=== PATIENT | female | born 1980 ===

== ENCOUNTER 2016-09-07 23:57 | Emergency (ER) | payer OTHER ==
[2016-09-08 00:08] VITALS: PULSE 79; RESP 16; TEMP 97.6; O2SAT 100
--- NOTE | 2016-09-08 00:34 | ED PDOC ---
HPI: General Adult Time Seen by Provider: 09/08/16 00:31 Chief Complaint (Nursing): Weakness/Neurological Deficit Chief Complaint (Provider): FACIAL NUMBNESS History Per: Patient (36 Y/O FEMALE WITH LEFT FACIAL NUMBNESS AND HEADACHE NOTED TODAY. STATES SHE NOTED MODERATE PAIN ALONG LEFT SIDE OF FACE WELL. DENIES ANY UPPER/LOWER EXTREMITY WEAKNESS. NO RASH NOTED.) Past Medical History Reviewed: Historical Data, Nursing Documentation, Vital Signs Vital Signs: Last Vital Signs Temp 97.6 F 09/08/16 00:04 Pulse 79 09/08/16 00:04 Resp 16 09/08/16 00:04 BP 139/87 09/08/16 00:56 Pulse Ox 100 09/08/16 02:10 - Medical History PMH: Gall Bladder Disease, Hypercholesterolemia - Surgical History Surgical History: Cholecystectomy - Family History Family History: States: No Known Family Hx - Immunization History Hx Tetanus Toxoid Vaccination: No Hx Influenza Vaccination: No Hx Pneumococcal Vaccination: No - Home Medications Home Medications: Ambulatory Orders Medication Instructions Recorded Zolpidem Tartrate [Ambien] 10 mg PO HS 07/22/13 oxyCODONE/Acetaminophen [Percocet 1 tab PO QID PRN #20 tab 07/22/13 5/325 mg Tab] Ondansetron [Zofran Odt] 4 mg PO TID PRN #9 odt 04/25/14 oxyCODONE/Acetaminophen [Percocet 1 tab PO QID PRN #20 tab 04/25/14 5/325 mg Tab] - Allergies Allergies/Adverse Reactions: Allergies Allergy/AdvReac Type Severity Reaction Status Date / Time Penicillins Allergy ITCHING Verified 09/08/16 00:27 Review of Systems ROS Statement: Except As Marked, All Systems Reviewed And Found Negative Neurological: Positive for: Other (LEFT SIDE FACIAL NUMBNESS) Physical Exam - Reviewed Nursing Documentation Reviewed: Yes Vital Signs Reviewed: Yes - Physical Exam Appears: Positive for: Well, Non-toxic, No Acute Distress Head Exam: Positive for: ATRAUMATIC, NORMAL INSPECTION, NORMOCEPHALIC Skin: Positive for: Normal Color, Warm, DRY Eye Exam: Positive for: EOMI, Normal appearance, PERRL ENT: Positive for: Normal ENT Inspection Neck: Positive for: Normal, Painless ROM Cardiovascular/Chest: Positive for: Regular Rate, Rhythm Respiratory: Positive for: CNT, Normal Breath Sounds Gastrointestinal/Abdominal: Positive for: Normal Exam, Bowel Sounds, Soft Back: Positive for: Normal Inspection Extremity: Positive for: Normal ROM Neurologic/Psych: Positive for: Alert, Oriented, Other (MILD DROOP LEFT SIDED NOTED WITH SMILING. NUMBNESS ALONG LEFT SIDE OF FACE INVOLVING FOREHEAD. ) - Laboratory Results Result Diagrams: 09/08/16 00:32 09/08/16 00:36 Urine POC: Negative - ECG O2 Sat by Pulse Oximetry: 100 - Progress ED Course And Treament: head ct: neg d/w patient diagnosis of Garcia's Palsy Prednisone 60 mg x 1 dose in ED Patient notes persistent headache/pain behind left eye. Vomiting x 1 episode REglan 10 mg iv x 1 dose NS 1 liter in ED. Patient notes resolution of symptoms with headache. Re-examined. Patient states no numbness noted at this time. Disposition - Clinical Impression Clinical Impression: Migraine headache - Patient ED Disposition Is Patient to be Admitted: No - Disposition Referrals: [facility] [Outside] Disposition: Routine/Home Disposition Time: 01:12 Condition: FAIR Instructions: Migraine Headache (ED) Forms: [facility] ED School/Work Excuse Print Language: AMHARIC
[2016-09-08 00:43] LABS: BASO % 0.4 % (0.0-2.0); EOS # 0.1 K/uL (0.0-0.7); EOS % 1.5 % (0.0-4.0); HEMATOCRIT 40.6 % (34.0-47.0); LYMPH # 2.6 K/uL (1.0-4.3); LYMPH % 39.5 % (20.0-40.0); MEAN CELL VOLUME 95.8 fl (81.0-99.0); MEAN CORPUSCULAR HEMOGLOBIN 31.8 pg (27.0-31.0); MEAN CORPUSCULAR HGB CONC 33.2 g/dL (33.0-37.0); MEAN PLATELET VOLUME 7.8 fl (7.2-11.7); MONO # 0.5 K/uL (0.0-0.8); NEUT # 3.4 K/uL (1.8-7.0); NEUT % 50.6 % (50.0-75.0); NRBC % 0.1 % (0.0-0.0); RED CELL DISTRIBUTION WIDTH 13.3 % (11.5-14.5); WHITE BLOOD COUNT 6.7 K/uL (4.8-10.8)
--- NOTE | 2016-09-08 00:53 | CT ---
EXAM: CT Head Without Intravenous Contrast CLINICAL HISTORY: 36 years old, female; Signs and symptoms; Numbness / parasthesia; Left; Additional info: Facial numbness TECHNIQUE: Axial computed tomography images of the head/brain without intravenous contrast. This CT exam was performed using one or more of the following dose reduction techniques: automated exposure control, adjustment of the mA and/or kV according to patient size, and/or use of iterative reconstruction technique. Coronal and sagittal reformatted images were created and reviewed. COMPARISON: No relevant prior studies available. FINDINGS: Brain: No acute intracranial hemorrhage. No significant white matter disease. No edema. Ventricles: No significant ventriculomegaly. Bones: No acute displaced fracture. Sinuses: Unremarkable as visualized. No acute sinusitis. Mastoid air cells: Unremarkable as visualized. No mastoid effusion. IMPRESSION: No acute intracranial hemorrhage, or suspicious mass effect.
[2016-09-08 00:56] VITALS: BP 139/87
[2016-09-08 00:56] LABS: BLOOD UREA NITROGEN 14 mg/dl (7-17); CALCIUM 9.6 mg/dL (8.4-10.2); CARBON DIOXIDE 27 mmol/L (22-30); CHLORIDE 105 mmol/L (98-107); GFR AFRICAN-AMERICAN > 60; GLUCOSE,RANDOM 97 mg/dL (65-105); POTASSIUM 4.2 MMOL/L (3.6-5.0); SODIUM 145 mmol/l (132-148)
[2016-09-08] MEDS ORDERED: Sodium Chloride 0.9% 1,000 ML IV STA (01:36)
== END 2016-09-08 02:37 | disposition home or self-care (01) ==
LOC: H.ER 23:57
DX: G43.909 Migraine, unspecified, not intractable, without status migrainosus (principal); E78.00 Pure hypercholesterolemia, unspecified; R53.1 Weakness; R20.0 Anesthesia of skin; Z88.0 Allergy status to penicillin

== ENCOUNTER 2016-12-25 10:26 | Inpatient (IN) | payer OTHER ==
[2016-12-25 11:14] LABS: BASO % 0.5 % (0.0-2.0); EOS % 0.5 % (0.0-4.0); HEMATOCRIT 39.8 % (34.0-47.0); LYMPH # 1.7 K/uL (1.0-4.3); LYMPH % 32.1 % (20.0-40.0); MEAN CELL VOLUME 94.7 fl (81.0-99.0); MEAN CORPUSCULAR HEMOGLOBIN 32.3 pg (27.0-31.0); MEAN CORPUSCULAR HGB CONC 34.1 g/dL (33.0-37.0); MEAN PLATELET VOLUME 7.9 fl (7.2-11.7); MONO # 0.3 K/uL (0.0-0.8); MONO % 5.9 % (0.0-10.0); NEUT # 3.2 K/uL (1.8-7.0); RED CELL DISTRIBUTION WIDTH 12.9 % (11.5-14.5); WHITE BLOOD COUNT 5.3 K/uL (4.8-10.8)
[2016-12-25 11:32] LABS: ALB/GLOB RATIO 1.5 (1.0-2.1); ALCOHOL SERUM < 10 mg/dl (0-10); ALKALINE PHOSPHATASE 60 U/L (38-126); ALT/SGPT 38 U/L (9-52); AST/SGOT 23 U/L (14-36); BILIRUBIN,TOTAL 0.8 mg/dl (0.2-1.3); BLOOD UREA NITROGEN 9 mg/dl (7-17); CALCIUM 8.9 mg/dL (8.4-10.2); CARBON DIOXIDE 22 mmol/L (22-30); CHLORIDE 107 mmol/L (98-107); CHOLESTEROL 210 mg/dL (0-199); GFR AFRICAN-AMERICAN > 60; GLUCOSE,RANDOM 115 mg/dL (65-105); POTASSIUM 3.7 MMOL/L (3.6-5.0); SODIUM 140 mmol/l (132-148); TOTAL PROTEIN 7.4 G/DL (6.3-8.2)
[2016-12-25 11:40] LABS: PARTIAL THROMBOPLASTIN TIME 27.8 Seconds (25.6-37.1)
--- NOTE | 2016-12-25 11:58 | CT ---
PROCEDURE: CT HEAD WITHOUT CONTRAST. HISTORY: L facial numbness, LUE weakness COMPARISON: 09/08/2016 TECHNIQUE: Axial computed tomography images were obtained through the head/brain without intravenous contrast. Radiation dose: Total exam DLP = 905.59 mGy-cm. This CT exam was performed using one or more of the following dose reduction techniques: Automated exposure control, adjustment of the mA and/or kV according to patient size, and/or use of iterative reconstruction technique. FINDINGS: HEMORRHAGE: No intracranial hemorrhage. BRAIN: No mass effect or edema. No atrophy or chronic microvascular ischemic changes. VENTRICLES: Unremarkable. No hydrocephalus. CALVARIUM: Unremarkable. PARANASAL SINUSES: Unremarkable as visualized. No significant inflammatory changes. MASTOID AIR CELLS: Unremarkable as visualized. No inflammatory changes. OTHER FINDINGS: None. IMPRESSION: No intracranial mass, hemorrhage or evidence of acute infarct.
--- NOTE | 2016-12-25 12:13 | ED PDOC ---
HPI:STROKE - Historian Historian: EMS - Chief Complaint Chief Complaint: Numbness (left facial ), Arm weakness (left) - Notes: Notes:: Madison Aponte is a 36 year old female, with a previous medical history of hypercholesterolemia and migraines, who presents to the ED via EMS after falling in the lobby of the clinic prior to arrival. According to EMS there was no loss of consciousness. Patient reports a left sided headache associated left arm weakness and left facial numbness ongoing since 09:00 this morning. Patient reports going to sleep yesterday at 19:00 asymptomatic. She denies any chest pain, shortness of breath or tingling. PMD: none provided NIHSS Stroke Scale - How Severe is the Stroke Level of Consciousness: 1=Drowsy LOC to Questions: 0=Both comments correct LOC to commands: 0=Obeys both correctly Best Gaze: 0=Normal Visual: 0=No visual loss Facial: 0=Normal Motor Arm - Left: 4=No movement Motor Arm - Right: 0=No drift Motor Leg - Left: 0=No drift Motor Leg - Right: 0=No drift Limb Ataxia: 0=Absent Sensory: 0=Normal Best Language: 0=No aphasia Dysarthia: 0=Normal articulation Extinction & Inattention (Neglect): 0=Normal, no object Score: 5 rTPA Inclusion/Exclusion - Refusal of Treatment Patient Refused Treatment: No - Inclusion Criteria for Altepase Patient is 18 years or Older: Yes The Clinical Diagnosis of Ischemic Stroke That is Causing a Potentially Disabling Neurological Deficit: Yes Time of Onset is Well Established to be Less Than 270 Minute Before Treatment Would Begin: No Risk/Benefit Discussed With Patient/Family Member Present: No Past Medical History Reviewed: Historical Data, Nursing Documentation, Vital Signs Vital Signs: Last Vital Signs Temp 98.8 F 12/25/16 10:28 Pulse 110 H 12/25/16 10:28 Resp 18 12/25/16 10:28 BP 195/93 H 12/25/16 10:28 Pulse Ox 98 12/25/16 10:28 - Medical History PMH: Gall Bladder Disease, Hypercholesterolemia, Migraine - Surgical History Surgical History: Cholecystectomy - Family History Family History: States: Unknown Family Hx - Immunization History Hx Tetanus Toxoid Vaccination: No Hx Influenza Vaccination: No Hx Pneumococcal Vaccination: No - Home Medications Home Medications: Ambulatory Orders Medication Instructions Recorded No Known Home Med 12/25/16 - Allergies Allergies/Adverse Reactions: Allergies Allergy/AdvReac Type Severity Reaction Status Date / Time Penicillins Allergy ITCHING Verified 12/25/16 11:06 Review of Systems ROS Statement: Except As Marked, All Systems Reviewed And Found Negative Constitutional: Negative for: Fever, Chills Respiratory: Negative for: Shortness of Breath Gastrointestinal: Negative for: Nausea, Vomiting, Abdominal Pain, Diarrhea Musculoskeletal: Positive for: Arm Pain (left arm weakness). Negative for: Neck Pain Neurological: Positive for: Numbness (left facial ), Headache Physical Exam - Reviewed Nursing Documentation Reviewed: Yes Vital Signs Reviewed: Yes - Physical Exam Appears: Positive for: Well, Non-toxic, No Acute Distress (appears sleepy but arousable to verbal stimuli ) Head Exam: Positive for: ATRAUMATIC, NORMAL INSPECTION, NORMOCEPHALIC Skin: Positive for: Normal Color, Warm, DRY Eye Exam: Positive for: EOMI, Normal appearance, PERRL ENT: Positive for: Normal ENT Inspection, Other (tongue midline ) Neck: Positive for: Normal, Painless ROM Cardiovascular/Chest: Positive for: Regular Rate, Rhythm Respiratory: Positive for: CNT, Normal Breath Sounds Gastrointestinal/Abdominal: Positive for: Normal Exam, Bowel Sounds, Soft. Negative for: Tenderness Back: Positive for: Normal Inspection Extremity: Negative for: Normal ROM (cant move upper extremities. ), Calf Tenderness Neurologic/Psych: Positive for: Alert, Oriented. Negative for: Motor/Sensory Deficits, Facial Droop - Laboratory Results Result Diagrams: 12/25/16 10:15 12/25/16 10:15 - ECG O2 Sat by Pulse Oximetry: 98 (RA) Pulse Ox Interpretation: Normal - Physician Consult Information Time Consulting Physican Contacted: 12:38 Physician Contacted: Jesse Bonner Outcome Of Conversation: Recommends MRI brain w and w/o contrast. Medical Decision Making Medical Decision Making: Initial Impression: Complex migraine vs CVA Initial Plan: * type and screen * CT head w/o contrast * EKG * alcohol serum * urine drug screen * hemoglobin A1C * lipid panel * Troponin I * psychiatric consult * urine dipstick * PTT * PT * ECHO * MRI brain W & WO contrast * CXR * aspirin 325 mg PO * IV NS 1,000 ml at 1,000 ml/hr * zofran 4 mg IV * urinalysis * accu-check * Vital Signs Q15 min * reevaluation 11:56 CT head FINDINGS: HEMORRHAGE: No intracranial hemorrhage. BRAIN: No mass effect or edema. No atrophy or chronic microvascular ischemic changes. VENTRICLES: Unremarkable. No hydrocephalus. CALVARIUM: Unremarkable. PARANASAL SINUSES: Unremarkable as visualized. No significant inflammatory changes. MASTOID AIR CELLS: Unremarkable as visualized. No inflammatory changes. OTHER FINDINGS: None. IMPRESSION: No intracranial mass, hemorrhage or evidence of acute infarct. Scribe Attestation: Documented by Tamy Branch, acting as a scribe for Tamy Albarran MD. Provider Scribe Attestation: All medical record entries made by the Scribe were at my direction and personally dictated by me. I have reviewed the chart and agree that the record accurately reflects my personal performance of the history, physical exam, medical decision making, and the department course for this patient. I have also personally directed, reviewed, and agree with the discharge instructions and disposition. Disposition - Clinical Impression Clinical Impression: Headache, LUE weakness - Patient ED Disposition Is Patient to be Admitted: Yes - Disposition Disposition Time: 12:35 Condition: STABLE - Pt Status Changed To: Hospital Disposition Of: Inpatient - Admit Certification Admit to Inpatient:: After my assessment, the patient will require hospitalization for at least two midnights. This is because of the severity of symptoms shown, intensity of services needed, and/or the medical risk in this patient being treated as an outpatient. - POA Present On Arrival: None
--- NOTE | 2016-12-25 13:17 | RAD ---
HISTORY: L sided weakness COMPARISON: No prior. FINDINGS: LUNGS: No active pulmonary disease. PLEURA: No significant pleural effusion identified, no pneumothorax apparent. CARDIOVASCULAR: Normal. OSSEOUS STRUCTURES: No significant abnormalities. VISUALIZED UPPER ABDOMEN: Normal. OTHER FINDINGS: None. IMPRESSION: No active disease. No preliminary report provided by emergency department personnel.
[2016-12-25 13:47] LABS: RBC URINE 1 /hpf (0-3); URINE BILIRUBIN NEGATIVE (NEGATIVE); URINE BLOOD NEGATIVE (NEGATIVE); URINE COLOR YELLOW (YELLOW); URINE GLUCOSE (UA) NEG (Normal); URINE KETONE NEGATIVE (NEGATIVE); URINE LEUKOCYTE ESTERASE NEG Leu/uL (Negative); URINE PROTEIN NEGATIVE (NEGATIVE); URINE UROBILINOGEN 0.2-1.0 mg/dL (0.2-1.0); WBC URINE 1 /hpf (0-5)
--- NOTE | 2016-12-25 14:30 | CP.PCM.HP ---
History of Present Illness - History of Present Illness History of Present Illness: CC/HPI: 36 y.o. female with PMHx of Migraine present to the E.R. with complaints of headache. Headache started 5 days ago. It is localized to the left side of her face. It is associated with weakness in the left arm. Pt. states has been taking 3 excedrin every day but has not helped. The pain is severe and persistent. Pt. reports went to the Clinic at [facility] where open entering the front lobby she fell. Pt. denies mechancial fall but states the headache was severe and fel weak. The fall was witnessed by the security architect in the lobby. Pt. denies any head trauma, incontinence, or uncontrolled limb movements. Pt. states this is a new occurrence and states worst headache of her life. ROS: Pt. denies any visual disturbances, nausea, vomiting, diarrhea, abdominal pain, fever, chills, joint pain, incontinence. PMHx: Migraines, Depression, Vitamin B-12 Def., Hyperlipidemia, HPV + PSHx: Tubal Ligation FMHx: Healthy to date Social: TOB- None ETOH- None DRUGS- None Home: Lives with roommate OBTIFFANIE , LMP Tracey Work- Works in [employer], lives with roommate, All family members in [facility] Allergies: PCN Home Meds: Excedrin PMD: [facility] Dr. Ovidio Dietz Course: CBC- WNL CMP- Elevated Triglycerides and Total Cholesterol UA- WNL UDS- WNL COAG- WNL HbA1c- Pending previous 5.2% EKG- NSR CXR- WNL CT Head- WNL no acute findings MRI Brain with and without contrast-Pending ASA- 81mg Zofran- 4mg IVP Present on Admission - Present on Admission Any Indicators Present on Admission: No History of DVT/PE: No History of Uncontrolled Diabetes: No Urinary Catheter: No Decubitus Ulcer Present: No Review of Systems - Review of Systems Review of Systems: See HPI Past Patient History - Past Social History Smoking Status: Never Smoked - CARDIAC Hx Hypercholesterolemia: Yes - NEUROLOGICAL Hx Migraine: Yes - GASTROINTESTINAL Hx Gall Bladder Disease: Yes - PSYCHIATRIC Hx Substance Use: No - SURGICAL HISTORY Hx Cholecystectomy: Yes - ANESTHESIA Hx Anesthesia: Yes Hx Anesthesia Reactions: No Meds Allergies/Adverse Reactions: Allergies Allergy/AdvReac Type Severity Reaction Status Date / Time Penicillins Allergy ITCHING Verified 12/25/16 11:06 Physical Exam - Constitutional Appears: Non-toxic, No Acute Distress - Head Exam Head Exam: ATRAUMATIC, NORMOCEPHALIC - Eye Exam Eye Exam: EOMI, Normal appearance, PERRL - ENT Exam ENT Exam: Mucous Membranes Moist - Neck Exam Neck exam: Positive for: Full Rom. Negative for: Lymphadenopathy, Meningismus, Thyromegaly - Respiratory Exam Respiratory Exam: Clear to Auscultation Bilateral, NORMAL BREATHING PATTERN - Cardiovascular Exam Cardiovascular Exam: REGULAR RHYTHM, +S1, +S2 - GI/Abdominal Exam GI & Abdominal Exam: Soft. absent: Tenderness - Extremities Exam Extremities exam: Positive for: pedal pulses present. Negative for: calf tenderness - Back Exam Back exam: NORMAL INSPECTION. absent: CVA tenderness (L), CVA tenderness (R), vertebral tenderness - Neurological Exam Neurological exam: Alert, CN II-XII Intact Additional comments: Strength 5/5 Bilat. lower extremeties Strenghth 0/5 left upper extremity - Psychiatric Exam Psychiatric exam: Depressed, Flat Affect - Skin Skin Exam: Dry, Warm Results - Vital Signs Recent Vital Signs: Last Vital Signs Temp 98.8 F 12/25/16 10:28 Pulse 77 12/25/16 12:25 Resp 19 12/25/16 12:25 BP 121/77 12/25/16 12:25 Pulse Ox 98 12/25/16 12:43 - Labs Result Diagrams: 12/25/16 10:15 12/25/16 10:15 Labs: Laboratory Results - last 24 hr 12/25/16 13:39 Urine Color Yellow Urine Clarity Slighty-cloudy Urine pH 7.0 Ur Specific [place] 1.009 Urine Protein Negative Urine Glucose (UA) Neg Urine Ketones Negative Urine Blood Negative Urine Nitrate Negative Urine Bilirubin Negative Urine Urobilinogen 0.2-1.0 Ur Leukocyte Esterase Neg Urine RBC (Auto) 1 Urine Microscopic WBC 1 Ur Squamous Epith Cells 4 Assessment & Plan - Assessment and Plan (Free Text) Assessment: 36 y.o. female with PMHx of Migraines admitted for evaluation of limb weakness and syncope Syncope 1-Echocardiogram 2-PT/OT 3-MRI Brain pending Upper Limb Weakness 1-Neurology Consult- Dr. Bonner 2-PT/OT 3-MRI Brain pending Migraine 1-Ibuprofen PRN 2-Zofran PRN 2-MRI Brain pending Depression 1- Consult Psych- Dr. Gaston 2- Denies suicide ideation at this time Diet 1-Regular DVT Prophylaxis 1- SCD
[2016-12-25] MEDS ORDERED: Sodium Chloride 0.9% 1,000 ML IV SCH (15:15)
[2016-12-25] MEDS ORDERED: Gadodiamide 287 MG/ML VIAL (15ML) IV ONE (17:00)
--- NOTE | 2016-12-26 09:13 | MRI ---
PROCEDURE: MRI BRAIN WITH AND WITHOUT CONTRAST HISTORY: L sided BURKS, LUE weakness COMPARISON: CT head without contrast 12/25/2016 TECHNIQUE: Multiplanar, multisequence MR images of the brain were obtained with and without intravenous contrast enhancement. 12 cc of Omniscan injected intravenously FINDINGS: HEMORRHAGE: None DWI: No evidence of an acute or early subacute infarction. BRAIN PARENCHYMA: No mass,mass effect or edema. No atrophy or chronic microvascular ischemic changes. ENHANCEMENT: No abnormal intracranial enhancement. VENTRICLES: Unremarkable. No hydrocephalus. CRANIUM: Unremarkable. ORBITS: Grossly unremarkable. PARANASAL SINUSES/MASTOIDS: Clear VASCULAR SYSTEM: Skull base flow voids intact. OTHER FINDINGS: None . IMPRESSION: Unremarkable pre and post contrast enhanced MRI of the brain.
--- NOTE | 2016-12-26 10:34 | CP.PCM.CON ---
History of Present Illness - History of Present Illness History of Present Illness: Psychiatry Consult called to evaluate for depression CC: "I have been having migraines" HPI: 36 y.o. female with PMHx of Migraine presented to the E.R. with complaints of headache w/ associated weakness in the left arm. Patient denies all psychiatric complaints to specification writer. No depression/anxiety/hallucinations/paranoia /delusions/charles/obsessions/compulsives/panic attacks/SI/HI. PPHx: Denies past psychiatric history. PMHx: Migraines Vitamin B-12 Def., Hyperlipidemia, HPV + PSHx: Tubal Ligation FMHx: Healthy to date Social: TOB- None ETOH- None DRUGS- None Home: Lives with roommate OBTIFFANIE , LMP November 28 Work- Works in [employer], lives with roommate, All family members in [facility] Allergies: PCN Home Meds: Excedrin PMD: [facility] Dr. Nolan MSE: A + O x 3, calm, cooperative, speech normal (northern irish speaking), mood "okay ", thought process-linear/coherent, no delusions/paranoia, no SI/HI, no hallucinations, insight/judgment good. Impression: 36 yo female w/ no acute psychiatric issues. No need for psychiatric medications or inpatient psychiatric hospitalization. Past Patient History - Past Medical History & Family History Past Medical History?: Yes - Past Social History Smoking Status: Never Smoked - CARDIAC Hx Cardiac Disorders: Yes Hx Hypercholesterolemia: Yes - PULMONARY Hx Respiratory Disorders: No - NEUROLOGICAL Hx Neurological Disorder: Yes Hx Migraine: Yes - HEENT Hx HEENT Problems: No - RENAL Hx Chronic Kidney Disease: No - ENDOCRINE/METABOLIC Hx Endocrine Disorders: No - HEMATOLOGICAL/ONCOLOGICAL Hx Blood Disorders: No - INTEGUMENTARY Hx Dermatological Problems: No - MUSCULOSKELETAL/RHEUMATOLOGICAL Hx Musculoskeletal Disorders: Yes Hx Falls: Yes - GASTROINTESTINAL Hx Gastrointestinal Disorders: Yes Hx Gall Bladder Disease: Yes - GENITOURINARY/GYNECOLOGICAL Hx Genitourinary Disorders: No - PSYCHIATRIC Hx Psychophysiologic Disorder: Yes Hx Depression: Yes Hx Substance Use: No - SURGICAL HISTORY Hx Surgeries: Yes Hx Cholecystectomy: Yes Hx Tubal Ligation: Yes - ANESTHESIA Hx Anesthesia: Yes Hx Anesthesia Reactions: No Meds Allergies/Adverse Reactions: Allergies Allergy/AdvReac Type Severity Reaction Status Date / Time Penicillins Allergy ITCHING Verified 12/25/16 11:06 - Medications Medications: Current Medications Atorvastatin Calcium (Lipitor) 40 mg PO DAILY MIGUEL Ibuprofen (Motrin Tab) 600 mg PO Q6 PRN PRN Reason: Pain, moderate (4-7) Tramadol HCl (Ultram) 50 mg PO Q4 PRN PRN Reason: Headache Tramadol HCl (Ultram) 50 mg PO Q6 PRN PRN Reason: Pain, severe (8-10) Results - Vital Signs Recent Vital Signs: Last Vital Signs Temp 98.3 F 12/26/16 08:00 Pulse 75 12/26/16 08:00 Resp 18 12/26/16 08:00 BP 126/81 12/26/16 08:00 Pulse Ox 100 12/26/16 08:00 - Labs Result Diagrams: 12/25/16 10:15 12/25/16 10:15 Labs: Laboratory Results - last 24 hr 12/25/16 12/25/16 12/25/16 13:39 13:39 20:00 ESR 12 Urine Color Yellow Urine Clarity Slighty-cloudy Urine pH 7.0 Ur Specific [place] 1.009 Urine Protein Negative Urine Glucose (UA) Neg Urine Ketones Negative Urine Blood Negative Urine Nitrate Negative Urine Bilirubin Negative Urine Urobilinogen 0.2-1.0 Ur Leukocyte Esterase Neg Urine RBC (Auto) 1 Urine Microscopic WBC 1 Ur Squamous Epith Cells 4 Urine Opiates Screen Negative Urine Methadone Screen Negative Ur Barbiturates Screen Negative Ur Phencyclidine Scrn Negative Ur Amphetamines Screen Negative U Benzodiazepines Scrn Negative U Oth Cocaine Metabols Negative U Cannabinoids Screen Negative
--- NOTE | 2016-12-26 11:19 | MRI ---
PROCEDURE: Magnetic Resonance Angiography Brain HISTORY: Vasculitis COMPARISON: None available. TECHNIQUE: 3D time of flight MR angiography of the intracranial arteries was performed. Rotating maximum intensity projection images were generated. FINDINGS: INTERNAL CEREBRAL ARTERIES: Normal in caliber. The skull base, petrous, cavernous and supraclinoid segments are bilaterally widely patient. ANTERIOR CEREBRAL ARTERIES: Normal in caliber e. A1 and A2 segments are widely patent. Smaller distal branches unremarkable, as visualized. MIDDLE CEREBRAL ARTERIES: Normal in caliber. M1 and M2 segments are widely patent. Perisylvian branches grossly symmetric. POSTERIOR CIRCULATION: Basilar Artery: There is a small eccentric filling defect along the left wall in the mid basilar artery. Distal Vertebral Arteries: Normal in caliber. The left vertebral artery is dominant, an anatomic variant. Posterior Cerebral Arteries: Normal in caliber. Posterior Inferior Cerebellar Arteries: Normal in caliber. ANEURYSM/ VASCULAR MALFORMATIONS: None. OTHER FINDINGS: None. IMPRESSION: 1. Suspect small thrombus versus atherosclerotic plaque in the mid basilar artery along the left lateral wall. A CT angiogram of the head may be performed for further characterization. 2. Normal and widely patent anterior circulation, posterior cerebral and vertebral arteries.
--- NOTE | 2016-12-26 11:23 | MRI ---
PROCEDURE: MR Angiography of the neck without contrast HISTORY: STENOSIS VASCULOPATHY COMPARISON: None available. TECHNIQUE: 3D [id number] angiography of the neck was performed. Rotating maximum intensity projection images of the cervical carotid and vertebral arteries were generated. The origins of the common carotid arteries were not visualized, which is a limitation inherent to the non-contrast time of flight technique. FINDINGS: RIGHT CAROTID ARTERIES: Common Carotid Artery: Normal. Carotid Bifurcation: Normal. Internal Carotid Artery:Normal. External Carotid Artery (proximal branches): Normal. LEFT CAROTID ARTERIES: Common Carotid Artery: Normal. Carotid Bifurcation: Normal. Internal Carotid Artery:Normal. External Carotid Artery (proximal branches): Normal. VERTEBRAL ARTERIES: Right Vertebral Artery: Normal. Left Vertebral Artery: Normal. The left vertebral artery is dominant, an anatomic variant. OTHER FINDINGS: None. IMPRESSION: Normal MR Angiography of the neck.
--- NOTE | 2016-12-26 11:26 | CARD ---
APPROVED REPORT EXAM: Two-dimensional and M-mode echocardiogram with Doppler and color Doppler. Other Information Quality : GoodRhythm : NSR INDICATION Syncope Echo Enhancing Agent Indication: Rule Out Septal Defect Agent/Amount Used: Agitated Saline 2D DIMENSIONS IVSd0.98 (0.7-1.1cm)LVDd4.14 (3.9-5.9cm) LVOT Diameter1.93 (1.8-2.4cm)PWd0.91 (0.7-1.1cm) IVSs1.53 (0.8-1.2cm)LVDs2.84 (2.5-4.0cm) FS (%) 31.4 %PWs1.21 (0.8-1.2cm) M-Mode DIMENSIONS Left Atrium (MM)3.53 (2.5-4.0cm)IVSd0.97 (0.7-1.1cm) Aortic Root2.53 (2.2-3.7cm)LVDd4.65 (4.0-5.6cm) Aortic Cusp Exc.1.76 (1.5-2.0cm)PWd0.79 (0.7-1.1cm) IVSs1.12 cmFS (%) 27 % LVDs3.41 (2.0-3.8cm)PWs1.15 cm Mitral Valve MV E Jfhiovld80.2cm/sMV DECEL [id number] A Haeludfc64.8cm/s MV ABF67efH/A ratio1.4MVA (PHT)6.42cm2 TDI Lateral E' Peak V15.56cm/sMedial E' Peak V9.37cm/sE/Lateral E'4.3 E/Medial E'7.1 Pulmonary Valve PV Peak Chcklunn12.8cm/s LEFT VENTRICLE The left ventricle is normal size. There is normal left ventricular wall thickness. The left ventricular function is normal. The left ventricular ejection fraction is 60% There is normal LV segmental wall motion. The left ventricular diastolic function is normal. No left ventricle thrombus noted on this study. There is no ventricular septal defect visualized. There is no left ventricular aneurysm. There is no mass noted in the left ventricle. RIGHT VENTRICLE The right ventricle is normal size. There is normal right ventricular wall thickness. The right ventricular systolic function is normal. ATRIA The left atrium size is normal. The right atrium size is normal. The interatrial septum is intact with no evidence for an atrial septal defect. AORTIC VALVE The aortic valve is normal in structure and function. No aortic regurgitation is present. There is no aortic valvular stenosis. There is no aortic valvular vegetation. MITRAL VALVE The mitral valve is normal in structure and function. There is no evidence of mitral valve prolapse. There is no mitral valve stenosis. There is no mitral valve regurgitation noted. TRICUSPID VALVE The tricuspid valve is normal in structure and function. There is no tricuspid valve regurgitation noted. There is no tricuspid valve prolapse or vegetation. There is no tricuspid valve stenosis. PULMONIC VALVE The pulmonary valve is normal in structure and function. There is no pulmonic valvular regurgitation. There is no pulmonic valvular stenosis. GREAT VESSELS The aortic root is normal in size. The ascending aorta is normal in size. The IVC is normal in size and collapses >50% with inspiration. PERICARDIAL EFFUSION The pericardium appears normal. There is no pleural effusion. <Conclusion> Normal Echocardiogram
--- NOTE | 2016-12-26 12:18 | CP.PCM.PN ---
Subjective - Date & Time of Evaluation Date of Evaluation: 12/26/16 Time of Evaluation: 12:17 - Subjective Subjective: Pt was seen and examined at the bedside. Denies headache, weakness of extremities, or facial numbness. Denies chest pain, SOB, dizziness, N/V, numbness or tingling, or loss of bladder or bowels. Objective - Vital Signs/Intake and Output Vital Signs (last 24 hours): Temp Pulse Resp BP Pulse Ox 98.3 F 75 18 126/81 100 12/26/16 08:00 12/26/16 08:00 12/26/16 08:00 12/26/16 08:00 12/26/16 08:00 - Medications Medications: Current Medications Atorvastatin Calcium (Lipitor) 40 mg PO DAILY MIGUEL Enoxaparin Sodium (Lovenox) 40 mg SC DAILY MIGUEL PRN Reason: Protocol Ibuprofen (Motrin Tab) 600 mg PO Q6 PRN PRN Reason: Pain, moderate (4-7) Tramadol HCl (Ultram) 50 mg PO Q4 PRN PRN Reason: Headache Tramadol HCl (Ultram) 50 mg PO Q6 PRN PRN Reason: Pain, severe (8-10) - Labs Labs: PT 11.6 Seconds (9.8-13.1) 12/25/16 10:15 INR 1.0 (0.9-1.2) 12/25/16 10:15 APTT 27.8 Seconds (25.6-37.1) 12/25/16 10:15 Assessment and Plan - Assessment and Plan (Free Text) Assessment: Assessment: 36 y.o. female with PMHx of Migraines admitted for evaluation of headache, left upper extremity weakness and syncope. 1)Syncope & LE Weakness -CBC nml, Utox negative, UA nml -ECG NSR, Echo nonremarkable -Head CT- nml -MRI of brain-nml -MRA of Head: Suspect thrombus vs atherosclerotic plaque of Mid Basilar Artery -Carotid Artery US- no hemodynamically significant stenosis -Neurology consulted, Will speak to neurologist and likely order CT Angio (Dr. Bonner) -CT Angio ordered -PT/OT placed 2)Migraine -Pt no longer complaining of headache -Ibuprofen PRN 2-Zofran PRN 2-MRI Brain pending HLD Lipid Panel TAG 373, Chol 210 Statin 40mg Depression 1- Consult Psych- Dr. Gaston 2- Denies suicide ideation at this time Diet 1-Regular DVT Prophylaxis 1- SCD (lovenox not given because patient is low risk- age, not , not on control, non smoker)
--- NOTE | 2016-12-26 13:55 | US ---
Carotid ultrasound Indication: Stenosis Technique: Grayscale, color, and duplex Doppler imaging of the bilateral carotid and vertebral arteries. Findings: Peak systolic velocities are as follows (cm/sec) Right: CCA - proximal 72.4 CCA - mid 77.9 CCA- distal 69.1 ECA 66.9 ICA - proximal 67.7 ICA - mid 90.3 ICA - distal 90.3 Vertebral- antegrade 38.3 ICA/CCA- 1.3 Left: CCA - proximal 111.3 CCA - mid 101.6 CCA- distal 87.1 ECA 80.6 ICA - proximal 70.9 ICA - mid 72.5 ICA - distal 88.7 Vertebral- antegrade 43.4 ICA/CCA- 1.0 Impression: No evidence of hemodynamically significant stenosis. Measurement of carotid stenosis is based on velocity parameters that correlate measurement of carotid stenosis is based on velocity parameters that correlate the residual internal carotid diameter with that of the more distal vessel in accordance with the [place] symptomatic carotid endarterectomy Trial (NASCET).
--- NOTE | 2016-12-26 18:03 | CARD ---
APPROVED REPORT EKG Measurement Heart [id number] <Conclusion> Normal sinus rhythm Normal ECG
[2016-12-26] MEDS ORDERED: Iodixanol 320 MG/ML 100 ML BOTTLE IV ONE (19:17)
[2016-12-26] MEDS ORDERED: Sodium Chloride 0.9% 100 ML ONE (19:17)
--- NOTE | 2016-12-26 20:55 | CT ---
EXAM: CT Angiography Head With Intravenous Contrast CLINICAL HISTORY: 36 years old, female; Signs and symptoms; Headache and weakness; Additional info: Mra finding supcious of basilar thrombus. TECHNIQUE: Axial computed tomographic angiography images of the head with intravenous contrast using CT angiography protocol. This CT exam was performed using one or more of the following dose reduction techniques: automated exposure control, adjustment of the mA and/or kV according to patient size, and/or use of iterative reconstruction technique. MIP reconstructed images were created and reviewed. Coronal and sagittal reformatted images were created and reviewed. CONTRAST: 75 mL of [id number] administered intravenously. EXAM DATE/TIME: 12/26/2016 7:19 PM COMPARISON: Recent MR angiogram of the brain, 12/26/2016 9:09 AM FINDINGS: RIGHT INTERNAL CAROTID ARTERY: No evidence of occlusion. No aneurysm visualized. RIGHT ANTERIOR CEREBRAL ARTERY: No evidence of occlusion. No aneurysm visualized. RIGHT MIDDLE CEREBRAL ARTERY: No evidence of occlusion. No aneurysm visualized. RIGHT POSTERIOR CEREBRAL ARTERY: No evidence of occlusion. No aneurysm visualized. RIGHT VERTEBRAL ARTERY: No evidence of occlusion or significant stenosis. No evidence of dissection. LEFT INTERNAL CAROTID ARTERY: No evidence of occlusion. No aneurysm visualized. LEFT ANTERIOR CEREBRAL ARTERY: No evidence of occlusion. No aneurysm visualized. LEFT MIDDLE CEREBRAL ARTERY: No evidence of occlusion. No aneurysm visualized. LEFT POSTERIOR CEREBRAL ARTERY: No evidence of occlusion. No aneurysm visualized. LEFT VERTEBRAL ARTERY: No evidence of occlusion or significant stenosis. No evidence of dissection. BASILAR ARTERY: No evidence of occlusion. Specifically, there is no evidence of thrombus in the basilar artery. No aneurysm visualized. IMPRESSION: - No evidence of occlusion or other acute abnormality of the major intracranial arteries. There is no evidence of basilar artery thrombosis. - See above for remaining findings.
--- NOTE | 2016-12-27 01:01 | CON ---
DATE: 12/26/2016 REASON FOR THE EVALUATION: Left-sided numbness. CHIEF COMPLAINT: The patient was brought in to [facility] with a history of numbness on her face and left arm. From neurological point of view, we called to evaluate her for further management. HISTORY OF PRESENT ILLNESS: Ms. Madison Aponte is a 36-year-old right-handed female in usual state of health, developed five days history of vomiting. Yesterday around 9 o'clock at her work, started to develop numbness of the left-side of the face and left arm, which was persistent in nature. Since the similar problem happened in the past, she decided to come to the hospital for further evaluation. The whole symptoms resolved after 7-hour period. The symptom is not associating with any visual or bulbar dysfunction. No involuntary movements. No focal weakness. She has similar symptoms and being admitted in the same hospital, been worked up and sent home with a diagnosis of migraine. PAST MEDICAL HISTORY: Unremarkable. PERSONAL HISTORY: Denies smoking or alcohol use. She is a mother of two children. No history of miscarriage. REVIEW OF SYSTEMS: A 12-point system has been reviewed. From a neurological system, she does have facial numbness and arm numbness. MEDICATIONS: Aspirin, atorvastatin, Lovenox and Tramadol. PHYSICAL EXAMINATION: VITAL SIGNS: Blood pressure 109/70, mean artery pressure of 83, respiratory rate 16, temperature afebrile. NECK: Supple. No carotid bruit. HEART: Sounds are regular. CHEST: Fair air entry. EXTREMITIES: No edema in legs. NEUROLOGICAL EXAMINATION: Mental status examination, she is awake, alert, and oriented to person, place, and time. Speech is clear. Naming, repetition, fluency, comprehension all within normal. CRANIAL NERVE EXAMINATION: Visual field intact. Pupil reactive to light. Extraocular movement normal. No nystagmus. No facial or sensory deficit. No facial asymmetry. Hearing is normal. Tongue is midline. Good gag. MOTOR EXAMINATION: Outstretched hand with eyes closed, no drift is noted. Probably symmetric on either side. DEEP TENDON REFLEXES: Biceps, brachioradialis, and triceps are 2+. Both knees are 3+. Both ankles are 2+. Left plantars are upgoing compared to the right side, which is downgoing. SENSORY EXAMINATION: Grossly intact. No cortical sensory loss. COORDINATION: [id number] test is intact. Gait is normal. CONCLUSION: Upon reviewing her history and neurological examination, Ms. Madison Aponte has been presenting with right subcortical dysfunction, manifesting with the episode of left facial and arm numbness. The current examination showed a left Babinski sign. Considering her age, this is probably brainstem migraine, however, other possible causes including hypercoagulable stage should be ruled out. LABORATORY DATA: Workup and CT of the head reviewed, no acute pathology. MRI of the brain, no acute ischemic process. MRA of the neck revealed no significant stenosis. MRA of the cachil dehe of [place] shows signal suggestive of possible thrombus in the basilar artery. EEG, no paroxysmal activities. Blood workup, WBC is 5.3, hemoglobin 13.6, hematocrit 39.8, platelet 310. PT 11.6, INR 1.0, PTT 27.8. Sodium 140, potassium 3.7, chloride 107, bicarbonate 22, BUN 9, creatinine 0.6, and glucose 118. Liver functions are normal. CRP 0.52. Triglyceride 373, cholesterol 210. Urine tox screen negative. RECOMMENDATIONS: 1. The patient should be on aspirin for stroke prophylaxis. 2. Considering dyslipidemia, the patient should be on statin. 3. Co-Enzyme Q10 can be given to improve her energy because of migraine and being on statin. Probably, she needs Coenzyme Q for some limitation. 4. Hypercoagulable stage, which has been worked up, however, the results are pending. 5. The patient is also scheduled to have CT angiogram to confirm thrombus in the basilar artery or not. If CT of the angiogram is negative, the patient is cleared from neuro, she can be discharged and should have followup visit as outpatient. Jesse Bonner MD CALI
[2016-12-27 06:37] LABS: HOMOCYSTEINE 7.5 umol/L (<10.4)
[2016-12-27 08:12] VITALS: BP 103/67; PULSE 71; RESP 18; TEMP 98.2; O2SAT 99
[2016-12-27] MEDS ORDERED: Enoxaparin 40 mg Syringe SC SCH (09:00)
--- NOTE | 2016-12-27 13:19 | EEG ---
DATE: 12/25/2016 The resting electroencephalogram consists of 30-40 microvolt, 9-11 hertz alpha activities seen at parietal and occipital leads. Anteriorly superimposed with 2-3 hertz of delta activity seen. The background alpha rhythm is symmetrically attenuated with eye opening. Some muscle as well as movement artifact contaminated the background rhythm. The photic stimulation did not develop any response noted at 2-20 hertz. Intermittent high amplitude delta activity seen which is consistent with early drowsiness. The photic stimulation did not develop any response noted at 2-20 hertz. IMPRESSION: This is a normal electroencephalogram of awake and drowsy adult. During the study, neither the electroencephalographic paroxysmal activities nor focal slowing noted. Jesse Bonner MD MTDD
--- NOTE | 2016-12-27 16:07 | CP.PCM.DIS ---
Provider - Provider Date of Admission: 12/25/16 12:35 Attending physician: Rosa Hester MD Time Spent in preparation of Discharge (in minutes): 30 Diagnosis - Discharge Diagnosis (1) Migraine headache Status: Resolved Hospital Course - Lab Results Lab Results: Most Recent Lab Values WBC 5.3 K/uL (4.8-10.8) 12/25/16 10:15 RBC 4.20 Mil/uL (3.80-5.20) 12/25/16 10:15 Hgb 13.6 g/dL (12.0-16.0) 12/25/16 10:15 Hct 39.8 % (34.0-47.0) 12/25/16 10:15 MCV 94.7 fl (81.0-99.0) 12/25/16 10:15 MCH 32.3 pg (27.0-31.0) H 12/25/16 10:15 MCHC 34.1 g/dL (33.0-37.0) 12/25/16 10:15 RDW 12.9 % (11.5-14.5) 12/25/16 10:15 Plt Count 310 K/uL (130-400) 12/25/16 10:15 MPV 7.9 fl (7.2-11.7) 12/25/16 10:15 Neut % (Auto) 61.0 % (50.0-75.0) 12/25/16 10:15 Lymph % (Auto) 32.1 % (20.0-40.0) 12/25/16 10:15 Knott % (Auto) 5.9 % (0.0-10.0) 12/25/16 10:15 Eos % (Auto) 0.5 % (0.0-4.0) 12/25/16 10:15 Baso % (Auto) 0.5 % (0.0-2.0) 12/25/16 10:15 Neut # 3.2 K/uL (1.8-7.0) 12/25/16 10:15 Lymph # 1.7 K/uL (1.0-4.3) 12/25/16 10:15 Knott # 0.3 K/uL (0.0-0.8) 12/25/16 10:15 Eos # 0.0 K/uL (0.0-0.7) 12/25/16 10:15 Baso # 0.0 K/uL (0.0-0.2) 12/25/16 10:15 ESR 12 mm/hr (0-20) 12/25/16 20:00 PT 11.6 Seconds (9.8-13.1) 12/25/16 10:15 INR 1.0 (0.9-1.2) 12/25/16 10:15 APTT 27.8 Seconds (25.6-37.1) 12/25/16 10:15 Sodium 140 mmol/l (132-148) 12/25/16 10:15 Potassium 3.7 MMOL/L (3.6-5.0) 12/25/16 10:15 Chloride 107 mmol/L (98-107) 12/25/16 10:15 Carbon Dioxide 22 mmol/L (22-30) 12/25/16 10:15 Anion Gap 15 (10-20) 12/25/16 10:15 BUN 9 mg/dl (7-17) 12/25/16 10:15 Creatinine 0.6 mg/dL (0.7-1.2) L 12/25/16 10:15 Est GFR ( Amer) > 60 12/25/16 10:15 Est GFR (Non-Af Amer) > 60 12/25/16 10:15 POC Glucose (mg/dL) 118 mg/dL (65-110) H 12/25/16 10:39 Random Glucose 115 mg/dL (65-105) H 12/25/16 10:15 Hemoglobin A1c 5.4 % (4.2-6.5) 12/25/16 10:15 Calcium 8.9 mg/dL (8.4-10.2) 12/25/16 10:15 Total Bilirubin 0.8 mg/dl (0.2-1.3) 12/25/16 10:15 AST 23 U/L (14-36) 12/25/16 10:15 ALT 38 U/L (9-52) 12/25/16 10:15 Alkaline Phosphatase 60 U/L (38-126) 12/25/16 10:15 Troponin I < 0.0120 ng/mL (0.00-0.120) 12/25/16 10:15 C-React Prot High Sens 0.52 mg/L (1.00-3.00) L 12/25/16 20:00 Total Protein 7.4 G/DL (6.3-8.2) 12/25/16 10:15 Albumin 4.4 g/dL (3.5-5.0) 12/25/16 10:15 Globulin 3.0 gm/dL (2.2-3.9) 12/25/16 10:15 Albumin/Globulin Ratio 1.5 (1.0-2.1) 12/25/16 10:15 Triglycerides 373 mg/DL (0-149) H D 12/25/16 10:15 Cholesterol 210 mg/dL (0-199) H 12/25/16 10:15 LDL Cholesterol Direct 111 mg/dL (0-129) 12/25/16 10:15 HDL Cholesterol 33 MG/DL (30-70) 12/25/16 10:15 Homocysteine 7.5 umol/L ( <10.4) 12/25/16 20:00 Urine Color Yellow (YELLOW) 12/25/16 13:39 Urine Clarity Slighty-cloudy (Clear) 12/25/16 13:39 Urine pH 7.0 (5.0-8.0) 12/25/16 13:39 Ur Specific [place] 1.009 (1.003-1.030) 12/25/16 13:39 Urine Protein Negative mg/dL (NEGATIVE) 12/25/16 13:39 Urine Glucose (UA) Neg mg/dL (Normal) 12/25/16 13:39 Urine Ketones Negative mg/dL (NEGATIVE) 12/25/16 13:39 Urine Blood Negative (NEGATIVE) 12/25/16 13:39 Urine Nitrate Negative (NEGATIVE) 12/25/16 13:39 Urine Bilirubin Negative (NEGATIVE) 12/25/16 13:39 Urine Urobilinogen 0.2-1.0 mg/dL (0.2-1.0) 12/25/16 13:39 Ur Leukocyte Esterase Neg Alberto/uL (Negative) 12/25/16 13:39 Urine RBC (Auto) 1 /hpf (0-3) 12/25/16 13:39 Urine Microscopic WBC 1 /hpf (0-5) 12/25/16 13:39 Ur Squamous Epith Cells 4 /hpf (0-5) 12/25/16 13:39 Urine Opiates Screen Negative (NEGATIVE) 12/25/16 13:39 Urine Methadone Screen Negative (NEGATIVE) 12/25/16 13:39 Ur Barbiturates Screen Negative (NEGATIVE) 12/25/16 13:39 Ur Phencyclidine Scrn Negative (NEGATIVE) 12/25/16 13:39 Ur Amphetamines Screen Negative (NEGATIVE) 12/25/16 13:39 U Benzodiazepines Scrn Negative (NEGATIVE) 12/25/16 13:39 U Oth Cocaine Metabols Negative (NEGATIVE) 12/25/16 13:39 U Cannabinoids Screen Negative (NEGATIVE) 12/25/16 13:39 Alcohol, Quantitative < 10 mg/dl (0-10) 12/25/16 10:15 Blood Type A POSITIVE 12/25/16 10:15 Antibody Screen Negative 12/25/16 10:15 BBK History Checked No verified bt 12/25/16 10:15 - Hospital Course Hospital Course: Discharge Diagnoses: Complex Migraine associated with LE Extremity weakness Consultations: Neurology, Psychiatry Procedures: none Complications: none Pt is a 36 yo female with a PMHx of HTN who presented to the clinic for a headache that she described as the worst headache of her life and left upper extremity weakness associated with naseasu and vomiting. While walking into clinic she passed out and was brought to the ED where she was worked up for a stroke. EKG, Head CT, Brain MRI, EEG and CT Angio showed no evidence of occlusion. Her headache and left upper extremity weakness resolved right away. Pt was also found to have elevated cholesterol levels but her ACVD risk was low so we did not put her Statins. Discharge Medications: Discharge Plan: Condition Upon Discharge: Stable Activity:Ambulating without assistance Diet:Regular Issues to be addressed at f/u: Elevated cholesterol levels, Evaluate for Depression/Anxiety, Management of Migraines, Pt was told to sharifa a headache journal and bring to next follow up appt. Discharge Exam - Head Exam Head Exam: ATRAUMATIC, NORMAL INSPECTION, NORMOCEPHALIC - Eye Exam Eye Exam: EOMI, PERRL Pupil Exam: NORMAL ACCOMODATION - ENT Exam ENT Exam: Mucous Membranes Moist - Respiratory Exam Respiratory Exam: absent: Accessory Muscle Use, Prolonged Expiratory Phase, Rales, Wheezes, Respiratory Distress - Cardiovascular Exam Cardiovascular Exam: REGULAR RHYTHM, +S1, +S2. absent: Systolic Murmur - Extremities Exam Extremities exam: normal capillary refill, pedal edema - Neurological Exam Neurological exam: Alert, Oriented x3 Additional comments: No motor or sensory defecits - Psychiatric Exam Psychiatric exam: Normal Affect Discharge Plan - Follow Up Plan Condition: STABLE Disposition: HOME/ ROUTINE Instructions: Constipation (DC), Constipation (GEN), Acute Abdominal Pain (DC) , Acute Abdominal Pain (GEN) Additional Instructions: Activity as tolerated. Regular diet. Appointment at [facility] Dec @ [address] Roman Titus Referrals: Jesse Bonner MD [Medical Doctor] - Hans Titus DO [Resident] -
[2016-12-28 22:53] LABS: CARDIOLIPIN AB (IGA) <11 APL (<=11)
[2016-12-29 05:16] LABS: B2 GLYCOPROTEIN I AB(IGA) <9 SAU (<=20); B2 GLYCOPROTEIN I AB(IGG) <9 SGU (<=20); B2 GLYCOPROTEIN I AB(IGM) <9 SMU (<=20)
[2016-12-29 06:03] LABS: PHOSPHATIDYLSERINE AB IGA <20 U/mL (<20); PHOSPHATIDYLSERINE AB IGM <25 U/mL (<25)
== END 2016-12-27 13:30 | disposition home or self-care (01) | DRG 891 ==
LOC: H.ER 10:26 → H.ERHOLD 12:35 → H.TEL 18:29
PROVIDERS: ADMIT Family Medicine; ATTEND Family Medicine
DX: G43.809 Other migraine, not intractable, without status migrainosus (principal); I10 Essential (primary) hypertension; E78.5 Hyperlipidemia, unspecified; Z88.0 Allergy status to penicillin; E78.00 Pure hypercholesterolemia, unspecified; R53.1 Weakness